=== PATIENT | female | born 1985 | race Caucasian/White ===

== ENCOUNTER 2016-09-25 21:42 | Emergency (ER) | payer OTHER ==
[~2016-09-25] VITALS: Ht 167.6 cm; Wt 62.3 kg
[~2016-09-25 21:42] MED LIST: PERC5TAB12 PO; PROZ20CA11 PO; XANA0.5T PO; ZOLP10TA3 PO
[2016-09-25 22:06] VITALS: BP 141/96; PULSE 82; RESP 18; TEMP 97.8; O2SAT 100
[2016-09-25] MEDS ORDERED: ZOLP10TA3 PO (22:17)
[2016-09-25] MEDS ORDERED: ALPR1TAB3 PO (22:17)
[2016-09-25] MEDS ORDERED: EFFE150C PO (22:17)
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
[2016-09-25] MEDS ORDERED: ONDANSETRON HCL 4 MG/2 ML VIAL IV PUSH ONE (22:30)
[2016-09-25] MEDS ORDERED: MORPHINE SULFATE 4 MG/ML INJ IV PUSH ONE (22:30)
[2016-09-25 22:39] LABS: AUTOMATED NEUTROPHIL # 9.1 TH/MM3 (1.8-7.7); BASOPHIL % 0.1 % (0.0-2.0); EOSINOPHIL % 0.3 % (0.0-4.0); HEMATOCRIT 37.6 % (35.0-46.0); HEMO FLAGS DIFF FINAL; LYMPHOCYTE # 1.3 TH/MM3 (1.0-4.8); MEAN CELL VOLUME 86.5 FL (80.0-100.0); MEAN CORPUSCULAR HEMOGLOBIN 30.2 PG (27.0-34.0); MONO % 5.5 % (0.0-8.0); NEUT % 82.1 % (16.0-70.0); PLATELET COUNT 260 TH/MM3 (150-450); RED BLOOD COUNT 4.34 MIL/MM3 (4.00-5.30); RED CELL DISTRIBUTION WIDTH 13.1 % (11.6-17.2); WHITE BLOOD COUNT 11.1 TH/MM3 (4.0-11.0)
[2016-09-25 23:04] LABS: BICARBONATE 27.3 MEQ/L (21.0-32.0); POTASSIUM 3.1 MEQ/L (3.5-5.1)
[2016-09-25 23:08] LABS: APTT (PATIENT) 27.5 SEC (24.3-30.1); INTERNATIONAL NORMALIZED RATIO 1.1 RATIO
[2016-09-25] MEDS ORDERED: IOHEXOL 350 MG/ML 10 ML VIAL (for RAD DIAG) IV ONE (23:08)
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
[2016-09-25] MEDS ORDERED: POTASSIUM CHLORIDE 20 MEQ CONTROLLED RELEASE TAB PO ONE (23:45)
[2016-09-25] MEDS ORDERED: IBUP800T23 PO (23:52)
[2016-09-25] MEDS ORDERED: PERC5TAB12 PO (23:52)
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
== END 2016-09-26 00:44 | disposition home or self-care (01) ==
LOC: NEPD 21:42
DX: S29.012A Strain of muscle and tendon of back wall of thorax, initial encounter (principal); V48.6XXA Car passenger injured in noncollision transport accident in traffic accident, initial encounter; F32.9 Major depressive disorder, single episode, unspecified; I10 Essential (primary) hypertension
CPT/HCPCS: 70450; 71260; 72125; 74177; 80048; 84703; 85025; 85610; 85730; 96374; 96375; 99284; J2270; J2405; Q9967

== ENCOUNTER 2017-04-13 07:10 | Observation (INO) | payer MEDICAID, OTHER ==
[~2017-04-13] VITALS: Ht 165.1 cm; Wt 63.0 kg
[~2017-04-13 07:10] MED LIST changes: +ALPR1TAB3 PO; +EFFE150C PO; +IBUP800T23 PO; -PROZ20CA11 PO; -XANA0.5T PO
[2017-04-13 07:18] VITALS: BP 132/74; PULSE 100; RESP 18; TEMP 99.1; O2SAT 97
--- NOTE | 2017-04-13 07:43 | PD ---
HPI Chief Complaint: Flank/Kidney Pain Time Seen by Provider: 07:31 Travel History International Travel<30 days: No Contact w/Intl Traveler<30days: No Traveled to known affect area: No History of Present Illness HPI A 31-year-old female with a history of kidney stones with a renal stent, presents today with complaints of severe right sided flank pain with associated hematuria and dysuria. She reports low-grade fever yesterday. She was seen and [place] this morning and told to come here as this is where she had her stent placed. She reports Dr. Pandya performed the stent. She was seen previously at the hospital in [place] and they treated her with antibiotics however told her anything further would need to be done here at [place]. She is status post hysterectomy secondary to menorrhagia. PFSH Past Medical History Anxiety: Yes Depression: Yes Cancer: No Cardiovascular Problems: No Diminished Hearing: No Genitourinary: Yes (uti hx) Hypertension: Yes (PAST HX) Immune Disorder: No Musculoskeletal: No Psychiatric: Yes (ANXIETY, [place] FOR OCD) Reproductive: No Respiratory: No Immunizations Current: Yes Tetanus Vaccination: > 5 Years Influenza Vaccination: Yes ?: Not Tubal Ligation: Yes Past Surgical History Abdominal Surgery: No Body Medical Devices: NONE Cardiac Surgery: No Ear Surgery: No Endocrine Surgery: No Eye Surgery: No Genitourinary Surgery: No Gynecologic Surgery: Yes (T.L., UTERINE ABLATION) Hysterectomy: Yes Oral Surgery: No Thoracic Surgery: No Other Surgery: Yes Social History Alcohol Use: Yes (RARELY) Tobacco Use: Yes (1/2 PPD) Substance Use: No (pt denies ) Allergies-Medications (Allergen,Severity, Reaction): Coded Allergies: Sulfa (Verified Allergy, Severe, rash, 04/13/17) Procardia (Verified Allergy, Intermediate, rash/ SOB, 04/13/17) Codeine (Verified Allergy, Mild, Hives, 04/13/17) Uncoded Allergies: codiene (Allergy, Severe, hives, 10/31/12) Reported Meds & Prescriptions Reported Meds & Active Scripts Active Ibuprofen 800 Mg Tab 800 Mg PO Q6HR PRN Percocet (Oxycodone-Acetaminophen) 5-325 mg Tab 1 Tab PO Q6H PRN Reported Zolpidem (Zolpidem Tartrate) 10 Mg Tab 10 Mg PO HS PRN Effexor XR 24 HR (Venlafaxine HCl) 150 Mg Cap 225 Mg PO DAILY Alprazolam 1 Mg Tab 1 Mg PO Q6H PRN Review of Systems Except as stated in HPI: all other systems reviewed are Neg General / Constitutional: Positive: Fever (subjective yesterday), No: Chills Eyes: No: Diploplia, Blurred Vision HENT: No: Headaches, Lightheadedness Cardiovascular: No: Chest Pain or Discomfort, Palpitations Respiratory: No: Shortness of Breath Gastrointestinal: Positive: Nausea, Abdominal Pain (suprapubic), No: Vomiting Genitourinary: Positive: Dysuria, Flank Pain (right sided), No: Frequency, Pelvic Pain, Vaginal Bleeding Musculoskeletal: Positive: Pain (right sided flank pain), No: Weakness Neurologic: No: Weakness, Headache Physical Exam Narrative GENERAL: Well-nourished, well-developed patient who appears obviously uncomfortable. SKIN: Focused skin assessment warm/dry. HEAD: Normocephalic/atraumatic. EYES: No scleral icterus. No injection or drainage. NECK: Supple, trachea midline. No JVD or lymphadenopathy. CARDIOVASCULAR: Regular rate and rhythm without murmurs, gallops, or rubs. RESPIRATORY: Breath sounds equal bilaterally. No accessory muscle use. GASTROINTESTINAL: Abdomen soft, non-tender, nondistended. MUSCULOSKELETAL: No cyanosis, or edema. BACK: Subjective right CVA tenderness. Minimal tenderness on percussion. NEUROLOGICAL: Awake and alert. Cranial nerves II through XII intact. Motor within normal limits. Five out of 5 muscle strength in all muscle groups. Normal speech. Data Data Last Documented VS Vital Signs Date Time Temp Pulse Resp B/P Pulse Ox O2 Delivery O2 Flow Rate FiO2 04/13/17 07:37 98 17 04/13/17 07:18 99.1 132/74 97 Orders Complete Blood Count With Diff (04/13/17 07:36) Basic Metabolic Panel (Bmp) (04/13/17 07:36) Urinalysis - C+S If Indicated (04/13/17 07:36) Ct Abd/Pel W/O Iv Contrast (04/13/17 07:36) Ecg Monitoring (04/13/17 07:36) Iv Access Insert/Monitor (04/13/17 07:36) Ketorolac Inj (Toradol Inj) (04/13/17 07:45) Ondansetron Inj (Zofran Inj) (04/13/17 07:45) Sodium Chloride 0.9% Flush (Ns Flush) (04/13/17 07:45) Urine Culture (04/13/17 07:45) Hydromorphone Pf Inj (Dilaudid Pf Inj) (04/13/17 08:30) Blood Culture (04/13/17 08:47) Ceftriaxone Inj (Rocephin Inj) (04/13/17 09:00) Vital Signs (Adult) ALIS.Q4H (04/13/17 09:09) Activity Oob Ad Josefina (04/13/17 09:09) Intake + Output 06,14,22 (04/13/17 09:09) Diet Regular Basic (04/13/17 Breakfast) Resp Oxygen Timi C Titrat 1-4 L (04/13/17 ) Sodium Chlor 0.9% 1000 Ml Inj (Ns 1000 M (04/13/17 09:09) Sodium Chloride 0.9% Flush (Ns Flush) (04/13/17 21:00) Oxycodone-Acetamin 5-325 Mg (Percocet (04/13/17 09:15) Consult Urology (04/13/17 ) Place In Observation (04/13/17 ) Ceftriaxone Inj (Rocephin Inj) (04/13/17 09:15) (Hub Use Only)Inp Phy Cons/Ref (04/13/17 ) Admit Order (Ed Use Only) (04/13/17 09:25) Labs Laboratory Tests Test 04/13/17 07:45 White Blood Count 9.5 TH/MM3 Red Blood Count 4.22 MIL/MM3 Hemoglobin 12.2 GM/DL Hematocrit 37.0 % Mean Corpuscular Volume 87.7 FL Mean Corpuscular Hemoglobin 29.0 PG Mean Corpuscular Hemoglobin 33.1 % Concent Red Cell Distribution Width 14.6 % Platelet Count 257 TH/MM3 Mean Platelet Volume 7.8 FL Neutrophils (%) (Auto) 66.3 % Lymphocytes (%) (Auto) 26.5 % Monocytes (%) (Auto) 4.2 % Eosinophils (%) (Auto) 2.6 % Basophils (%) (Auto) 0.4 % Neutrophils # (Auto) 6.3 TH/MM3 Lymphocytes # (Auto) 2.5 TH/MM3 Monocytes # (Auto) 0.4 TH/MM3 Eosinophils # (Auto) 0.2 TH/MM3 Basophils # (Auto) 0.0 TH/MM3 CBC Comment DIFF FINAL Differential Comment Urine Color YELLOW Urine Turbidity HAZY Urine pH 6.5 Urine Specific [place] 1.011 Urine Protein 30 mg/dL Urine Glucose (UA) NEG mg/dL Urine Ketones NEG mg/dL Urine Occult Blood LARGE Urine Nitrite NEG Urine Bilirubin NEG Urine Urobilinogen LESS THAN 2.0 MG/DL Urine Leukocyte Esterase LARGE Urine RBC /hpf Urine WBC /hpf Urine Squamous Epithelial 8 /hpf Cells Urine Bacteria OCC /hpf Urine Hyaline Casts 8 /lpf Urine Mucus MANY /lpf Microscopic Urinalysis Comment CULTURE INDICATED Sodium Level 141 MEQ/L Potassium Level 4.1 MEQ/L Chloride Level 108 MEQ/L Carbon Dioxide Level 26.5 MEQ/L Anion Gap 7 MEQ/L Blood Urea Nitrogen 12 MG/DL Creatinine 0.67 MG/DL Estimat Glomerular Filtration 103 ML/MIN Rate Random Glucose 93 MG/DL Calcium Level 7.7 MG/DL [facility] Medical Decision Making Medical Screen Exam Complete: Yes Emergency Medical Condition: Yes Differential Diagnosis Pyelonephritis versus recurrent kidney stones versus stent malfunction Narrative Course 31-year-old female with history of right ureteral stent, presents today with complaints of right sided flank pain. Patient also has low-grade fever yesterday and has 99.1 here today. White count is normal. Urinalysis shows innumerable WBCs with bacteria and leukocyte esterase. She'll be admitted to the hospital under observation here she's been given Rocephin 1 g. There is a call out to Dr. Walsh, on-call for urology. This possibility she will need to have the stent removed. CT scan does not show any further stones in her right kidney. Case was discussed with Dr. Ramirez with the [facility] hospitalist service. He will be the admitting physician. Diagnosis Primary Impression: infected right ureteral stent Admitting Information Admitting Physician Requests: Observation Tito Meehan MD Apr 13, 2017 07:43
[2017-04-13] MEDS ORDERED: SODIUM CHLORIDE 0.9% FLUSH 10 ML FLUSH IVF PRN (07:45)
[2017-04-13] MEDS ORDERED: ONDANSETRON HCL 4 MG/2 ML VIAL IVP ONE (07:45)
[2017-04-13] MEDS ORDERED: KETOROLAC TROMETHAMINE 30 MG/ML (IVP) VIAL IVP ONE (07:45)
[2017-04-13 08:03] LABS: AUTOMATED NEUTROPHIL # 6.3 TH/MM3 (1.8-7.7); BASOPHIL % 0.4 % (0.0-2.0); EOSINOPHIL # 0.2 TH/MM3 (0-0.4); EOSINOPHIL % 2.6 % (0.0-4.0); HEMO FLAGS DIFF FINAL; LYMPH % 26.5 % (9.0-44.0); LYMPHOCYTE # 2.5 TH/MM3 (1.0-4.8); MEAN CELL VOLUME 87.7 FL (80.0-100.0); MEAN CORPUSCULAR HGB CONC 33.1 % (32.0-36.0); MONO % 4.2 % (0.0-8.0); NEUT % 66.3 % (16.0-70.0); PLATELET COUNT 257 TH/MM3 (150-450); RED BLOOD COUNT 4.22 MIL/MM3 (4.00-5.30); RED CELL DISTRIBUTION WIDTH 14.6 % (11.6-17.2); WHITE BLOOD COUNT 9.5 TH/MM3 (4.0-11.0)
[2017-04-13 08:08] LABS: BACTERIA, URINE OCC /hpf; BLOOD, URINE LARGE (NEG); COMMENT (UR) CULTURE INDICATED; CULTURE IF INDICATED CULTURE INDICATED; GLUCOSE,URINE NEG (NEG); HYALINE CAST, URINE 8 /lpf (RARE); KETONE, URINE NEG (NEG); MUCUS URINE MANY /lpf (OCC); NITRITE,URINE NEG (NEG); PH, URINE 6.5 (5.0-8.5); SQUAMOUS EPITHELIAL CELL URINE 8 /hpf (0-5); URINE COLOR YELLOW (YELLW/STRAW)
[2017-04-13] MEDS ORDERED: HYDROmorphone HCL PF 1 MG/ML VIAL IVS ONE (08:30)
[2017-04-13 08:32] LABS: BICARBONATE 26.5 MEQ/L (21.0-32.0); POTASSIUM 4.1 MEQ/L (3.5-5.1)
--- NOTE | 2017-04-13 08:33 | RADRPT ---
EXAM DATE/TIME: 04/13/2017 08:07 [facility] COMPARISON: No previous studies available for comparison. INDICATIONS : Right flank pain. ORAL CONTRAST: No oral contrast ingested. RADIATION DOSE: 5.46 CTDIvol (mGy) MEDICAL HISTORY : Renal calculi. SURGICAL HISTORY : Hysterectomy. ureteral stents. ENCOUNTER: Initial ACUITY: 1 day PAIN SCALE: 7/10 LOCATION: Right flank TECHNIQUE: Volumetric scanning of the abdomen and pelvis was performed. Using automated exposure control and ad justment of the mA and/or kV according to patient size, radiation dose was kept as low as reasonably achievable to obtain optimal diagnostic quality images. DICOM format image data is available electro nically for review and comparison. FINDINGS: LOWER LUNGS: The visualized lower lungs are clear. LIVER: Homogeneous density without lesion. There is no dilation of the biliary tree. No calcified gallston es. SPLEEN: Normal size without lesion. PANCREAS: Within normal limits. ADRENAL GLANDS: Within normal limits. KIDNEYS: Stent is present in the right kidney, in good position. Calcification is present distal ureter adjac ent to the stent. There no calcifications on the left. VASCULAR: There is no aortic aneurysm. BOWEL/MESENTERY: The stomach, small bowel, and colon demonstrate no acute abnormality. There is no free intraperitone al air or fluid. RETROPERITONEUM: There is no lymphadenopathy. BLADDER: No wall thickening or mass. REPRODUCTIVE: Within normal limits. ABDOMINAL WALL: Within normal limits. INGUINAL: There is no lymphadenopathy or hernia. MUSCULOSKELETAL: Mild degenerative changes are present in the lower lumbar spine. CONCLUSION: Double J stent in good position on the right calcification adjacent to the stent right distal ureter. There are no remaining stones in the right kidney. Miguel Ferguson MD FACR on April 13, 2017 at 8:29 Board Certified Radiologist. This report was verified electronically.
[2017-04-13] MEDS ORDERED: cefTRIAXone INJ 1,000 MG in SODIUM CHLORIDE 0.9% INJ 100 ML IV ONE (09:00)
[2017-04-13] MEDS ORDERED: oxyCODONE/ACETAMINOPHEN 5 MG/325 MG TAB PO PRN (09:15)
[2017-04-13] MEDS: SODIUM CHLOR 0.9% 1000 ML INJ 1,000 ML IV SCH ×2 (10:06→23:23)
--- NOTE | 2017-04-13 10:13 | HHI.HP ---
HPI Service [facility] Primary Care Physician Tere Coates MD Admission Diagnosis infected right ureteral stent. Diagnoses: Chief Complaint: Right flank pain Travel History International Travel<30 Days: No Contact w/Intl Traveler <30 Da: No Traveled to Known Affected Are: No History of Present Illness Written by Singh Rouse, acting as scribe for Dr. Ramirez on 04/13/17 at 9:55. This note was transcribed by scribe TOM Williamson on 04/13/2017. I, Dr. Nigel Ramirez personally performed the history, physical exam, and medical decision making; and confirmed the accuracy of the information in the transcribed note. Authenticated by Dr. Nigel Ramirez on 04/14/17 at 00:01. 31-year-old female with a past medical history of anxiety/depression, kidney stones, HTN, who presented for flank pain. The patient states that she has a history of kidney stones in the past. She states that she had a right ureteral stent put in at [facility] in [place] on 03/13. She states she also had an Escherichia coli UTI at the time. She states that she's been having flank pain off and on since then. She states the pain significantly a increased last night. She has been having sensation of urinary urgency, but has not been voiding much. She states her urine has been red and tea colored. She states that she felt feverish, has not checked her temperature. She reports associated nausea, but has been tolerating oral intake. Awaiting callback from urology. Review of Systems Except as stated in HPI: all other systems reviewed are Neg Past Family Social History Past Medical History Anxiety/depression History of kidney stones History of hypertension, off medications due to recent insurance change History of dysfunctional uterine bleeding, status post hysterectomy Past Surgical History Ureteral stent placement Hysterectomy Reported Medications Reported Meds & Active Scripts Active Ibuprofen 800 Mg Tab 800 Mg PO Q6HR PRN Percocet (Oxycodone-Acetaminophen) 5-325 mg Tab 1 Tab PO Q6H PRN Reported Zolpidem (Zolpidem Tartrate) 10 Mg Tab 10 Mg PO HS PRN Effexor XR 24 HR (Venlafaxine HCl) 150 Mg Cap 225 Mg PO DAILY Alprazolam 1 Mg Tab 1 Mg PO Q6H PRN Allergies: Coded Allergies: Sulfa (Verified Allergy, Severe, rash, 04/13/17) Procardia (Verified Allergy, Intermediate, rash/ SOB, 04/13/17) Codeine (Verified Allergy, Mild, Hives, 04/13/17) Uncoded Allergies: codiene (Allergy, Severe, hives, 10/31/12) Active Ordered Medications Current Medications Medications (Trade) Dose Ordered Sig/Juice Route Start Time Stop Time Status Last Admin Sodium Chloride 2 ml 2 ml UNSCH PRN IVF 04/13/17 07:45 (NS 1000 ml Inj) 1,000 ml @ 100 mls/hr Q10H IV 04/13/17 10:00 (NS Flush) 2 ml BID IV FLUSH 04/13/17 21:00 Oxycodone/ Acetaminophen 1 tab 1 tab Q6H PRN PO 04/13/17 09:15 (Rocephin Inj/NS Inj) 100 ml @ 200 mls/hr Q24H IV 04/13/17 09:15 UNV Family History Mother had ovarian cancer and has MS Social History Denies any alcohol or drug use Smokes 5-10 cigarettes daily Physical Exam Vital Signs Vital Signs Date Time Temp Pulse Resp B/P Pulse Ox O2 Delivery O2 Flow Rate FiO2 04/13/17 07:37 98 17 04/13/17 07:18 99.1 100 18 132/74 97 Physical Exam GENERAL: Well-developed well-nourished. In no acute distress. SKIN: Warm and dry. No lesions noted. HEENT: Normocephalic. Pupils equal and round. Mucous membranes pink and moist. CARDIOVASCULAR: Regular rate and rhythm. No murmur appreciated. RESPIRATORY: No accessory muscle use. Clear to auscultation. Breath sounds equal bilaterally. GASTROINTESTINAL: Abdomen soft, non-tender, nondistended. Bowel sounds x4. Bilateral CVA tenderness, right worse than left. MUSCULOSKELETAL: No obvious deformities. No clubbing or cyanosis. No edema. NEUROLOGICAL: Awake and alert. No focal neurological deficits. Moves upper and lower extremities spontaneously. Normal speech. PSYCHIATRIC: Appropriate mood and affect; insight and judgment normal. Laboratory Laboratory Tests Test 04/13/17 07:45 White Blood Count 9.5 Red Blood Count 4.22 Hemoglobin 12.2 Hematocrit 37.0 Mean Corpuscular Volume 87.7 Mean Corpuscular Hemoglobin 29.0 Mean Corpuscular Hemoglobin 33.1 Concent Red Cell Distribution Width 14.6 Platelet Count 257 Mean Platelet Volume 7.8 Neutrophils (%) (Auto) 66.3 Lymphocytes (%) (Auto) 26.5 Monocytes (%) (Auto) 4.2 Eosinophils (%) (Auto) 2.6 Basophils (%) (Auto) 0.4 Neutrophils # (Auto) 6.3 Lymphocytes # (Auto) 2.5 Monocytes # (Auto) 0.4 Eosinophils # (Auto) 0.2 Basophils # (Auto) 0.0 CBC Comment DIFF FINAL Differential Comment Urine Color YELLOW Urine Turbidity HAZY Urine pH 6.5 Urine Specific [place] 1.011 Urine Protein 30 Urine Glucose (UA) NEG Urine Ketones NEG Urine Occult Blood LARGE Urine Nitrite NEG Urine Bilirubin NEG Urine Urobilinogen LESS THAN 2.0 Urine Leukocyte Esterase LARGE Urine RBC Urine WBC Urine Squamous Epithelial 8 Cells Urine Bacteria OCC Urine Hyaline Casts 8 Urine Mucus MANY Microscopic Urinalysis Comment CULTURE INDICATED Sodium Level 141 Potassium Level 4.1 Chloride Level 108 Carbon Dioxide Level 26.5 Anion Gap 7 Blood Urea Nitrogen 12 Creatinine 0.67 Estimat Glomerular Filtration 103 Rate Random Glucose 93 Calcium Level 7.7 Date/Time Procedure Status Source Growth 04/13/17 09:00 Aerobic Blood Culture Received Blood Peripheral Pending 04/13/17 09:00 Anaerobic Blood Culture Received Blood Peripheral Pending 04/13/17 07:45 Urine Culture Received Urine Clean Catch Pending Result Diagram: 04/13/17 0745 04/13/17 0745 Imaging Last Impressions Abdomen/Pelvis CT 04/13/17 0736 Signed Impressions: Service Date/Time: Thursday, April 13, 2017 08:07 - CONCLUSION: Double J stent in good position on the right calcification adjacent to the stent right distal ureter. There are no remaining stones in the right kidney. Miguel Ferguson MD FACR Assessment and Plan Assessment and Plan 31-year-old female with a past medical history of anxiety/depression, kidney stones, HTN, who presented for flank pain Right flank pain with complex UTI: S/P recent right ureteral stent placement. Reviewed: Abdominal CT shows right double-J stent in good position on the right calcification adjacent to the stent right distal ureter; no remaining stones in the right kidney. UA with evidence of UTI. Tmax 99.1. No leukocytosis. -Urology consulted, keep nothing by mouth for possible stent removal -Continue oxycodone and IV Dilaudid as needed for pain -Cover with IV ceftriaxone and follow-up urine culture result -IVF Anxiety/depression/insomnia: Chronic. Resume home medications. Tobacco abuse: Patient counseled on cessation. Patient declines nicotine patch. DVT prophylaxis: SCDs Discussed Condition With Patient with boyfriend at bedside, Singh Abreu Apr 13, 2017 10:13 Derick Ramirez DO Apr 14, 2017 00:02
[2017-04-13] MEDS ORDERED: ACETAMINOPHEN 325 MG TAB PO PRN (10:15)
[2017-04-13 11:00] VITALS: O2SAT 97
[2017-04-13] MEDS: HYDROmorphone HCL PF 1 MG/ML VIAL IV PUSH PRN ×3 (11:01→21:37)
[2017-04-13 11:09] VITALS: BP 128/75; PULSE 92; RESP 20
[2017-04-13 11:43] VITALS: BP 119/71; PULSE 68; RESP 18; TEMP 98.2; O2SAT 99
[2017-04-13] MEDS: oxyCODONE/ACETAMINOPHEN 5 MG/325 MG TAB PO PRN ×2 (12:29→20:43)
--- NOTE | 2017-04-13 13:01 | PD.CONS ---
HPI Service Urology Consult Requested By Primary Care Physician Tere Coates MD Diagnosis: History of Present Illness 31-year-old female with history of Escherichia coli sepsis status post cystoscopy with right double-J stent insertion by Dr. Pandya at [facility] on March 13, 2017. Patient instructed by both [facility] and Dr. Pandya's office to follow-up at [place] to have her stent removed. Patient presented to the emergency room for removal of her right double-J stent. Patient is complaining of stent pain on the right side. She also had a PICC line placed during her hospitalization at [facility] for IV outpatient antibiotics. She completed these and has not had any fever or chills. She does have a history of nephrolithiasis in the past. She also has had a hysterectomy in the past for dysfunctional uterine bleeding. Review of Systems ROS Limitations: Clinical Condition Constitutional: DENIES: Diaphoretic episodes Eyes: DENIES: Blurred vision Ears, nose, mouth, throat: DENIES: Tinnitus Respiratory: DENIES: Apneas Cardiovascular: DENIES: Chest pain Gastrointestinal: COMPLAINS OF: Abdominal pain Musculoskeletal: DENIES: Joint pain Integumentary: DENIES: Abnormal pigmentation Hematologic/lymphatic: DENIES: Bruising Immunologic/allergic: DENIES: Eczema Neurologic: DENIES: Abnormal gait Psychiatric: DENIES: Anxiety Except as stated in HPI: all other systems reviewed are Neg Past Family Social History Past Medical History Nephrolithiasis Escherichia coli sepsis with retained ureteral stent Dysfunctional uterine bleeding Hypertension Past Surgical History Cystoscopy right double-J stent insertion Hysterectomy due to dysfunctional uterine bleeding Allergies: Coded Allergies: Sulfa (Verified Allergy, Severe, rash, 04/13/17) Procardia (Verified Allergy, Intermediate, rash/ SOB, 04/13/17) Codeine (Verified Allergy, Mild, Hives, 04/13/17) Uncoded Allergies: codiene (Allergy, Severe, hives, 10/31/12) Family History Mother with ovarian cancer Social History Patient currently smokes cigarettes. Denies drinking or using drugs. Physical Exam Vital Signs Date Time Temp Pulse Resp B/P Pulse Ox O2 Delivery O2 Flow Rate FiO2 04/13/17 11:43 98.2 68 18 119/71 99 04/13/17 11:09 92 20 128/75 04/13/17 11:00 97 21 04/13/17 07:37 98 17 04/13/17 07:18 99.1 100 18 132/74 97 Physical Exam GENERAL: This is a well-nourished, well-developed patient, in no apparent distress. SKIN: No rashes, ecchymoses or lesions. Cool and dry. HEAD: Atraumatic. Normocephalic. No temporal or scalp tenderness. EYES: Pupils equal round and reactive. Extraocular motions intact. No scleral icterus. No injection or drainage. ENT: Nose without bleeding, purulent drainage or septal hematoma. Throat without erythema, tonsillar hypertrophy or exudate. Uvula midline. Airway patent. NECK: Trachea midline. No JVD or lymphadenopathy. Supple, nontender, no meningeal signs. CARDIOVASCULAR: Regular rate and rhythm without murmurs, gallops, or rubs. RESPIRATORY: Clear to auscultation. Breath sounds equal bilaterally. No wheezes , rales, or rhonchi. GASTROINTESTINAL: Abdomen soft, non-tender, nondistended. No hepato-splenomegaly , or palpable masses. No guarding. Right CVA tenderness is noted. GENITOURINARY: Normal female external genitalia MUSCULOSKELETAL: Extremities without clubbing, cyanosis, or edema. No joint tenderness, effusion, or edema noted. No calf tenderness. Negative Homans sign bilaterally. NEUROLOGICAL: Awake and alert. Cranial nerves II through XII intact. Motor and sensory grossly within normal limits. Five out of 5 muscle strength in all muscle groups. Normal speech. Laboratory Tests Test 04/13/17 07:45 White Blood Count 9.5 Red Blood Count 4.22 Hemoglobin 12.2 Hematocrit 37.0 Mean Corpuscular Volume 87.7 Mean Corpuscular Hemoglobin 29.0 Mean Corpuscular Hemoglobin 33.1 Concent Red Cell Distribution Width 14.6 Platelet Count 257 Mean Platelet Volume 7.8 Neutrophils (%) (Auto) 66.3 Lymphocytes (%) (Auto) 26.5 Monocytes (%) (Auto) 4.2 Eosinophils (%) (Auto) 2.6 Basophils (%) (Auto) 0.4 Neutrophils # (Auto) 6.3 Lymphocytes # (Auto) 2.5 Monocytes # (Auto) 0.4 Eosinophils # (Auto) 0.2 Basophils # (Auto) 0.0 CBC Comment DIFF FINAL Differential Comment Urine Color YELLOW Urine Turbidity HAZY Urine pH 6.5 Urine Specific [place] 1.011 Urine Protein 30 Urine Glucose (UA) NEG Urine Ketones NEG Urine Occult Blood LARGE Urine Nitrite NEG Urine Bilirubin NEG Urine Urobilinogen LESS THAN 2.0 Urine Leukocyte Esterase LARGE Urine RBC Urine WBC Urine Squamous Epithelial 8 Cells Urine Bacteria OCC Urine Hyaline Casts 8 Urine Mucus MANY Microscopic Urinalysis Comment CULTURE INDICATED Sodium Level 141 Potassium Level 4.1 Chloride Level 108 Carbon Dioxide Level 26.5 Anion Gap 7 Blood Urea Nitrogen 12 Creatinine 0.67 Estimat Glomerular Filtration 103 Rate Random Glucose 93 Calcium Level 7.7 Date/Time Procedure Status Source Growth 04/13/17 09:00 Aerobic Blood Culture Received Blood Peripheral Pending 04/13/17 09:00 Anaerobic Blood Culture Received Blood Peripheral Pending 04/13/17 07:45 Urine Culture Received Urine Clean Catch Pending Result Diagram: 04/13/1745 04/13/1745 Imaging Last Impressions Abdomen/Pelvis CT 04/13/17 0736 Signed Impressions: Service Date/Time: Thursday, April 13, 2017 08:07 - CONCLUSION: Double J stent in good position on the right calcification adjacent to the stent right distal ureter. There are no remaining stones in the right kidney. Miguel Ferguson MD FACR Assessment and Plan Assessment and Plan 31-year-old female with retained right ureteral stent status post Escherichia coli sepsis with history of nephrolithiasis. Patient scheduled for flexible cystoscopy with stent removal in the a.m. in the OR. Risk and benefits discussed preoperatively and she is willing to proceed. Colby [place] DO Apr 13, 2017 13:01
[2017-04-13 17:11] VITALS: BP 132/88; PULSE 69; RESP 18; TEMP 97.6; O2SAT 99
[2017-04-13] MEDS ORDERED: HYDROmorphone HCL PF 1 MG/ML VIAL IV PUSH ONE (17:15)
[2017-04-13] MEDS: ONDANSETRON HCL 4 MG/2 ML VIAL IV PUSH PRN (17:21)
[2017-04-13 20:23] VITALS: BP 136/86; PULSE 66; RESP 19; TEMP 97.6; O2SAT 66
[2017-04-13] MEDS: SODIUM CHLORIDE 0.9% FLUSH 10 ML FLUSH IV FLUSH SCH (21:00)
[2017-04-13] MEDS: ALPRAZolam 1 MG TAB PO PRN (21:36)
[2017-04-13] MEDS: ZOLPIDEM TARTRATE 10 MG TAB PO PRN (23:21)
[2017-04-14 00:35] VITALS: BP 118/74; PULSE 69; RESP 17; TEMP 97.6; O2SAT 98
[2017-04-14 04:47] VITALS: BP 118/72; PULSE 77; RESP 17; TEMP 97.5; O2SAT 97
[2017-04-14 07:32] VITALS: BP 116/84; PULSE 89; RESP 18; TEMP 98.1; O2SAT 98
[2017-04-14] MEDS: oxyCODONE/ACETAMINOPHEN 5 MG/325 MG TAB PO PRN ×3 (07:51→22:13)
[2017-04-14] MEDS: SODIUM CHLOR 0.9% 1000 ML INJ 1,000 ML IV SCH ×3 (07:53→22:14)
[2017-04-14] MEDS: VENLAFAXINE HCL XR 75 MG CAP PO SCH (07:54)
[2017-04-14] MEDS: cefTRIAXone INJ 1,000 MG in SODIUM CHLORIDE 0.9% INJ 100 ML IV SCH (08:00)
[2017-04-14] MEDS: SODIUM CHLORIDE 0.9% FLUSH 10 ML FLUSH IV FLUSH SCH ×2 (08:02→22:14)
[2017-04-14] MEDS: HYDROmorphone HCL PF 1 MG/ML VIAL IV PUSH PRN ×2 (09:48→17:51)
--- NOTE | 2017-04-14 09:50 | HHI.PR ---
Subjective Remarks Follow up for right flank pain in a patient with a history of right ureteral stent. Patient currently complains of pain. She underwent bedside urological procedure per patient. Urology consult indicates procedure to be done in the OR. Objective Vitals Vital Signs Date Time Temp Pulse Resp B/P Pulse Ox O2 Delivery O2 Flow Rate FiO2 04/14/17 07:32 98.1 89 18 116/84 98 04/14/17 04:47 97.5 77 17 118/72 97 04/14/17 00:35 97.6 69 17 118/74 98 04/13/17 23:22 18 04/13/17 23:22 18 04/13/17 20:23 97.6 66 19 136/86 66 04/13/17 17:11 97.6 69 18 132/88 99 04/13/17 11:43 98.2 68 18 119/71 99 04/13/17 11:09 92 20 128/75 04/13/17 11:00 97 21 I/O 04/13/17 04/13/17 04/13/17 04/14/17 04/14/17 04/14/17 06:59 14:59 22:59 06:59 14:59 22:59 Intake Total 400 ml Balance 400 ml Intake Oral 400 ml # Voids 2 Result Diagram: 04/13/17 0745 04/13/17 0745 Imaging Last Impressions Abdomen/Pelvis CT 04/13/17 0736 Signed Impressions: Service Date/Time: Thursday, April 13, 2017 08:07 - CONCLUSION: Double J stent in good position on the right calcification adjacent to the stent right distal ureter. There are no remaining stones in the right kidney. Miguel Ferguson MD FACR Objective Remarks GENERAL: Alert, Oriented x 3, NAD. SKIN: Warm and dry. HEAD: Normocephalic. EYES: No scleral icterus. No injection or drainage. NECK: Supple, trachea midline. No JVD or lymphadenopathy. CARDIOVASCULAR: Regular rate and rhythm without murmurs, gallops, or rubs. RESPIRATORY: Breath sounds equal bilaterally. No accessory muscle use. GASTROINTESTINAL: Abdomen soft, non-tender, nondistended. MUSCULOSKELETAL: No cyanosis, or edema. BACK: Nontender without obvious deformity. right CVA tenderness. A/P Assessment and Plan 31-year-old female with a past medical history of anxiety/depression, kidney stones, HTN, who presented for flank pain Right flank pain with complex UTI: S/P recent right ureteral stent placement. Reviewed: Abdominal CT shows right double-J stent in good position on the right calcification adjacent to the stent right distal ureter; no remaining stones in the right kidney. UA with evidence of UTI. Tmax 99.1. No leukocytosis. -Urology consulted - apparently performed bedside procedure. -Continue oxycodone and IV Dilaudid as needed for pain -Cover with IV ceftriaxone and follow-up urine culture result -IVF Anxiety/depression/insomnia: Chronic. Resume home medications. Tobacco abuse: Patient counseled on cessation. Patient declines nicotine patch. Derick Ramirez DO Apr 14, 2017 09:50
[2017-04-14] MEDS: ONDANSETRON HCL 4 MG/2 ML VIAL IV PUSH PRN (09:58)
[2017-04-14] MEDS: ALPRAZolam 1 MG TAB PO PRN ×2 (11:53→22:13)
[2017-04-14 15:17] VITALS: BP_SYST 100; BP_SYST 118; BP_DIAS 65; BP_DIAS 81; PULSE 76; RESP 18; TEMP 98.6; O2SAT 98
[2017-04-14 19:54] VITALS: BP 125/68; PULSE 76; RESP 18; TEMP 98.9; O2SAT 100
[2017-04-14] MEDS: ZOLPIDEM TARTRATE 10 MG TAB PO PRN (22:12)
[2017-04-15 00:59] VITALS: BP 131/71; PULSE 81; RESP 18; TEMP 97.9; O2SAT 98
[2017-04-15] MEDS: HYDROmorphone HCL PF 1 MG/ML VIAL IV PUSH PRN ×2 (01:12→08:14)
[2017-04-15] MEDS: oxyCODONE/ACETAMINOPHEN 5 MG/325 MG TAB PO PRN ×2 (03:59→13:01)
[2017-04-15 07:39] VITALS: BP 120/75; PULSE 72; RESP 15; TEMP 98; O2SAT 99
[2017-04-15] MEDS: VENLAFAXINE HCL XR 75 MG CAP PO SCH (08:20)
[2017-04-15] MEDS: cefTRIAXone INJ 1,000 MG in SODIUM CHLORIDE 0.9% INJ 100 ML IV SCH (08:38)
[2017-04-15] MEDS: SODIUM CHLORIDE 0.9% FLUSH 10 ML FLUSH IV FLUSH SCH (08:38)
[2017-04-15 11:06] VITALS: BP 128/83; PULSE 79; RESP 15; TEMP 97.8; O2SAT 99
--- NOTE | 2017-04-15 11:54 | MR ---
cc: DOREEN [place] DATE: 04/13/2017 PREOPERATIVE DIAGNOSIS Retained right ureteral stent. POSTOPERATIVE DIAGNOSIS Retained right ureteral stent. PROCEDURE Cystoscopy with right double-J stent removal. SURGEON Dr. [place]. ANESTHESIA Local. FINDINGS Right double-J stent removed without difficulty. She tolerated the procedure well. INDICATION Jerry Guerra is a 31-year-old female who underwent stent insertion for E. Coli sepsis at [facility] by Dr. Alex. The patient was told to come to [facility] to have her stent removed due to the fact that Dr. Alex did not accept her insurance in the office. She also went to [facility] twice and they referred her to come to [place] to have her stent removed. The patient was in the emergency room at the time and the risks and benefits were discussed preoperatively. She was willing to proceed. PROCEDURE The patient remained on the stretcher in the frog-leg position. She was prepped and draped in the usual sterile fashion. 1% lidocaine jelly was injected into the urethra, allowed to sit for 5 minutes. The scope was then inserted in the bladder and the right ureteral stent was identified and using the alligator grasper it was removed without difficulty. She tolerated the procedure well. Doreen [place] SWT/TLL /5:07 PM /11:48 AM
[2017-04-15] MEDS: SODIUM CHLOR 0.9% 1000 ML INJ 1,000 ML IV SCH (13:02)
[2017-04-15] MEDS ORDERED: PERC7.5T13 PO ×2 (13:15→13:19)
--- NOTE | 2017-04-15 13:19 | HHI.DS ---
Discharge Summary Admission Date Apr 13, 2017 at 9:27 am Discharge Date: Apr 15, 2017 Admitting Diagnosis infected right ureteral stent. (1) Right flank pain ICD Code: R10.9 Diagnosis: Principal Procedures Right ureteral stent removal. Brief History - From Admission Written by Singh Rouse, acting as scribe for Dr. Ramirez on 04/13/17 at 9:55. This note was transcribed by scrTOM Bustamante on 04/13/2017. I, Dr. Nigel Ramirez personally performed the history, physical exam, and medical decision making; and confirmed the accuracy of the information in the transcribed note. Authenticated by Dr. Nigel Ramirez on 04/14/17 at 00:01. 31-year-old female with a past medical history of anxiety/depression, kidney stones, HTN, who presented for flank pain. The patient states that she has a history of kidney stones in the past. She states that she had a right ureteral stent put in at [facility] in [place] on 03/13. She states she also had an Escherichia coli UTI at the time. She states that she's been having flank pain off and on since then. She states the pain significantly a increased last night. She has been having sensation of urinary urgency, but has not been voiding much. She states her urine has been red and tea colored. She states that she felt feverish, has not checked her temperature. She reports associated nausea, but has been tolerating oral intake. Awaiting callback from urology. CBC/BMP: 04/13/17 0745 04/13/17 0745 Significant Findings Laboratory Tests Test 04/13/17 07:45 Urine Turbidity HAZY (CLEAR) Urine Protein 30 mg/dL (NEG-TRACE) Urine Occult Blood LARGE (NEG) Urine Leukocyte Esterase LARGE (NEG) Urine Bacteria OCC /hpf (NONE) Urine Mucus MANY /lpf (OCC) Chloride Level 108 MEQ/L (98-107) Calcium Level 7.7 MG/DL (8.5-10.1) Imaging Last Impressions Abdomen/Pelvis CT 04/13/17 0736 Signed Impressions: Service Date/Time: Thursday, April 13, 2017 08:07 - CONCLUSION: Double J stent in good position on the right calcification adjacent to the stent right distal ureter. There are no remaining stones in the right kidney. Miguel Ferguson MD FACR PE at Discharge GENERAL: Alert, Oriented x 3, NAD. SKIN: Warm and dry. HEAD: Normocephalic. EYES: No scleral icterus. No injection or drainage. NECK: Supple, trachea midline. No JVD or lymphadenopathy. CARDIOVASCULAR: Regular rate and rhythm without murmurs, gallops, or rubs. RESPIRATORY: Breath sounds equal bilaterally. No accessory muscle use. GASTROINTESTINAL: Abdomen soft, non-tender, nondistended. MUSCULOSKELETAL: No cyanosis, or edema. BACK: Nontender without obvious deformity. right CVA tenderness. Pt update on day of discharge Patient is doing well. She complains of some flank pain but much improved. No fever, chills. Hospital Course 31-year-old female with a past medical history of anxiety/depression, kidney stones, HTN, who presented for flank pain Right flank pain with complex UTI: S/P recent right ureteral stent placement. Reviewed: Abdominal CT shows right double-J stent in good position on the right calcification adjacent to the stent right distal ureter; no remaining stones in the right kidney. UA with evidence of UTI. Tmax 99.1. No leukocytosis. -Urology consulted - patient underwent stent removal. -Continue oxycodone and IV Dilaudid as needed for pain -UA did not indicate any acute infection. We discontinued Ceftriaxone. Anxiety/depression/insomnia: Chronic. Resume home medications. Tobacco abuse: Patient counseled on cessation. Patient declined nicotine patch. Pt Condition on Discharge: Good Discharge Disposition: Discharge Home Discharge Time: <= 30 minutes Discharge Instructions DIET: Follow Instructions for: As Tolerated, No Restrictions Activities you can perform: Regular-No Restrictions Follow up Referrals: PCP Follow-up - 1 Week New Medications: Oxycodone-Acetaminophen (Percocet) 7.5-325 mg Tab 1 TAB PO Q6H PRN PAIN #20 Ref 0 TAB Continued Medications: Alprazolam (Alprazolam) 1 Mg Tab 1 MG PO Q6H PRN ANXIETY Ref 0 TAB Venlafaxine ER 24 HR (Effexor XR 24 HR) 150 Mg Cap 225 MG PO DAILY #30 Ref 0 CAP Zolpidem (Zolpidem) 10 Mg Tab 10 MG PO HS PRN INSOMNIA Ref 0 TAB Discontinued Medications: Ibuprofen (Ibuprofen) 800 Mg Tab 800 MG PO Q6HR PRN PAIN #40 Ref 0 TAB Oxycodone-Acetaminophen (Percocet) 5-325 mg Tab 1 TAB PO Q6H PRN PAIN #15 Ref 0 TAB Derick Ramirez DO Apr 15, 2017 13:19
== END 2017-04-15 17:04 | disposition home or self-care (01) ==
LOC: NEPC 07:10 → NEDA 09:27 → NEPHCDU 11:38
PROVIDERS: ADMIT Hospitalist; ATTEND Hospitalist
DX: T83.592A Infection and inflammatory reaction due to indwelling ureteral stent, initial encounter (principal); R10.9 Unspecified abdominal pain; Y83.1 Surgical operation with implant of artificial internal device as the cause of abnormal reaction of the patient, or of later complication, without mention of misadventure at the time of the procedure; I10 Essential (primary) hypertension; G47.00 Insomnia, unspecified; F41.9 Anxiety disorder, unspecified; F32.9 Major depressive disorder, single episode, unspecified; F17.210 Nicotine dependence, cigarettes, uncomplicated; Z87.442 Personal history of urinary calculi; Z71.6 Tobacco abuse counseling; Z79.899 Other long term (current) drug therapy
CPT/HCPCS: 74176; 80048; 81001; 85025; 87040; 87086; 96365; 96366; 96375; 96376; 99285; G0378; J0696; J1170; J1885; J2405; J7030